=== PATIENT | male | born 1970 | race Caucasian/White ===

== ENCOUNTER → 2023-09-25 | Outpatient (CLI) | payer OTHER ==
--- NOTE | 2023-09-25 14:47 | XR ---
EXAMINATION TYPE: XR hand complete LT DATE OF EXAM: 09/25/2023 11:45 AM CLINICAL INDICATION:Male, 53 years old with history of M79.742 PAIN IN LEFT HAND; [facility] COMPARISON: None TECHNIQUE: XR hand complete LT Frontal, lateral and oblique views were obtained. FINDINGS/IMPRESSION: 1. Comminuted fracture of the second and third digit. No evidence for radiopaque foreign body. 2. Soft tissue edema likely secondary to #1. 3. No additional fractures visualized.
== END | disposition home or self-care (01) ==
LOC: RADXRMAIN 11:23
PROVIDERS: ATTEND Family Medicine
DX: S62.632A Displaced fracture of distal phalanx of right middle finger, initial encounter for closed fracture (principal); R60.0 Localized edema